=== PATIENT | male | born 1990 | race Two or more races ===

== ENCOUNTER 2021-09-26 12:05 | Emergency (ER) | payer SELFPAY ==
[~2021-09-26] VITALS: Ht 165.1 cm; Wt 59.0 kg
--- NOTE | 2021-09-26 12:14 | NUR ---
SEEN AND EXAMINED BY DR GARCIA
--- NOTE | 2021-09-26 12:28 | NUR ---
Ambulatory- Gait steady. States "Im ok want to leave now" MD aware. After Care instructions given discharged home in stable condition AAO, Appropriate and responsive. Refusing fdc states "I have family"
[2021-09-26 12:31] VITALS: BP 108/68
== END 2021-09-26 12:33 | disposition home or self-care (01) ==
LOC: ER 12:07
DX: F10.129 Alcohol abuse with intoxication, unspecified (principal); Z59.00 Homelessness unspecified; Y90.9 Presence of alcohol in blood, level not specified